=== PATIENT | female | born 1950 | race Caucasian/White ===

== ENCOUNTER 2016-10-22 09:50 | Inpatient (IN) | payer OTHER ==
--- NOTE | 2016-10-22 10:07 | EDPHY ---
H & P Time Seen by Provider: 10/22/16 10:03 HPI/ROS: Chief complaint. Neck swelling, trouble breathing HPI. 66-year-old female presents with left-sided neck swelling for 2 days that is progressively getting worse. She has trouble breathing and swallowing secondary to swelling and pain. No sore throat or cough however. Fever this morning. She does have left lower mandibular dental pain and knows that she has a bad tooth that requires root canal. She did have similar symptoms 1 year ago that was diagnosis a salivary stone. No abdominal pain, vomiting, diarrhea. No rash. No travel. No urinary symptoms. ROS Constitutional. Fever and chills Eyes. no problems with vision ENT. Left-sided neck swelling and left mandibular pain. Increased pain with swallowing Cardiovascular. no chest pain Respiratory. Trouble breathing but no cough Abdominal. no abdominal pain, no nausea/vomiting, no diarrhea . no problems urinating MS. no calf pain/swelling, no neck/back pain, no joint pain Skin. no rash Lymph. no swollen glands Neuro. no headache, no dizziness, no difficulty walking or with speech Past Medical/Surgical History: Past medical history significant for hypothyroid, GERD Social History: , nonsmoker, no alcohol Smoking Status: Never smoked Physical Exam: General Appearance: Alert well-developed female moderate distress. Vital signs show initial temp 39.1degrees with heart rate 114. O2 saturation on room air 88%. Eyes: Pupils equal and round no pallor or injection. ENT, pharynx without injection. Mucous membranes are moist. Tenderness to percussion of the left 2nd molar on the bottom left. Significant swelling that is tender to the left side of her neck below the mandible. Respiratory: There are no retractions, lungs are clear to auscultation. Cardiovascular: Regular rate and rhythm. Gastrointestinal: Abdomen is soft and nontender, no masses, bowel sounds normal. Neurological: Awake and alert, sensory and motor exams grossly normal. Skin: Warm and dry, no rashes. Musculoskeletal: Neck is supple nontender. Extremities symmetrical, full range of motion. Psychiatric: Patient is oriented X 3, there is no agitation. Constitutional: Initial Vital Signs Temperature (C) 39.1 C H 10/22/16 10:02 Heart Rate 114 H 10/22/16 10:02 Respiratory Rate 18 10/22/16 10:02 Blood Pressure 143/92 H 10/22/16 10:02 O2 Sat (%) 88 L 10/22/16 10:02 O2 Delivery Mode Room Air O2 (L/minute) 2 Allergies/Adverse Reactions: No Known Allergies Allergy (Unverified 11/18/15 16:07) Home Medications: Medication Instructions Recorded Krill Oil 11/18/15 Levothyroxine 11/18/15 Omeprazole 11/18/15 Vesicare 11/18/15 Vicodin 11/18/15 Medical Decision Making - Diagnostics Imaging Results: Imaging Impressions Face CT 10/22/16 10:33 Impression: Suspect left tonsillitis without abscess formation. Please see above. 2. CT Neck With Contrast History: Swelling, difficulty breathing and talking Technique: 128 slice ultrathin single breath-hold helical CT through the neck from the skull base through the thoracic inlet after 90 mL Isovue 300 nonionic contrast were injected without complication. Sagittal and coronal reconstructions are reviewed. Dose reduction techniques were utilized. Findings: The larynx and subglottic airway are symmetric and normal. The thyroid gland is unremarkable. Of there is no cervical adenopathy or edema extending into the upper mediastinum. The lung apices are normally aerated. There is multilevel degenerative disk disease. Impression: The left oral pharyngeal edema does not extend into the larynx or subglottic airway. Message was left for Dr. David Watson at 12:03 pm. General information for patients regarding this examination can be found at [email or web address]. If you have questions or comments about this report, please contact me at (hospital) or [phone] (cell). Neck CT 10/22/16 10:33 Impression: Suspect left tonsillitis without abscess formation. Please see above. 2. CT Neck With Contrast History: Swelling, difficulty breathing and talking Technique: 128 slice ultrathin single breath-hold helical CT through the neck from the skull base through the thoracic inlet after 90 mL Isovue 300 nonionic contrast were injected without complication. Sagittal and coronal reconstructions are reviewed. Dose reduction techniques were utilized. Findings: The larynx and subglottic airway are symmetric and normal. The thyroid gland is unremarkable. Of there is no cervical adenopathy or edema extending into the upper mediastinum. The lung apices are normally aerated. There is multilevel degenerative disk disease. Impression: The left oral pharyngeal edema does not extend into the larynx or subglottic airway. Message was left for Dr. David Watson at 12:03 pm. General information for patients regarding this examination can be found at [email or web address]. If you have questions or comments about this report, please contact me at [phone] (hospital) or [phone] (cell). Procedures: IV normal saline. Sepsis evaluation. Morphine for pain. Zofran for nausea Tylenol for fever Decadron and clindamycin IV ED Course/Re-evaluation: Re-evaluation at 12:15 p.m.. Patient is stable. She is improved after pain medication. I looked in the back of her throat again and I do not see pharyngeal edema or evidence for peritonsillar abscess. Patient and I discussed treatment plan including recommendation for hospitalization. She expresses understanding and agreement. She would like to be admitted to a [facility]. We have a phone call in the hospitalist A [facility] does not have either ENT or oral surgery systems protection technician this weekend. Family is in agreement to go to [facility] I consulted discussed case with Dr. Resendez, hospitalist, who agrees to the admission I recommended transport by ambulance however the family is quite insistent that they would like to go by private vehicle with her driving. We discussed risks and benefits of this. They expressed understanding and agreement Differential Diagnosis: This appears to be cellulitis secondary to dental caries. She has a known bad tooth that is needing root canal. This tooth is tender to percussion with tongue blade. Her pharynx appears normal without evidence of peritonsillar abscess. No evidence for abscess at this point. I also considered peritonsillar abscess and acute pharyngitis. I considered sepsis as well - Data Points Laboratory Results: Laboratory Results 10/22/16 10:10 10/22/16 10:10 10/22/16 10/22/16 10/22/16 10:10 10:10 10:10 WBC 17.86 10^3/uL H 10^3/uL (3.80-9.50) RBC 4.51 10^6/uL 10^6/uL (4.18-5.33) Hgb 13.5 g/dL g/dL (12.6-16.3) Hct 40.7 % % (38.0-47.0) MCV 90.2 fL fL (81.5-99.8) MCH 29.9 pg pg (27.9-34.1) MCHC 33.2 g/dL g/dL (32.4-36.7) RDW 13.5 % % (11.5-15.2) Plt Count 178 10^3/uL 10^3/uL (150-400) MPV 12.7 fL H fL (8.7-11.7) Neut % (Auto) 87.5 % H % (39.3-74.2) Lymph % (Auto) 4.8 % L % (15.0-45.0) Bracken % (Auto) 6.7 % % (4.5-13.0) Eos % (Auto) 0.2 % L % (0.6-7.6) Baso % (Auto) 0.2 % L % (0.3-1.7) Nucleat RBC Rel Count 0.0 % % (0.0-0.2) Absolute Neuts (auto) 15.64 10^3/uL H 10^3/uL (1.70-6.50) Absolute Lymphs (auto) 0.86 10^3/uL L 10^3/uL (1.00-3.00) Absolute Monos (auto) 1.19 10^3/uL H 10^3/uL (0.30-0.80) Absolute Eos (auto) 0.03 10^3/uL 10^3/uL (0.03-0.40) Absolute Basos (auto) 0.03 10^3/uL 10^3/uL (0.02-0.10) Absolute Nucleated RBC 0.00 10^3/uL 10^3/uL (0-0.01) Immature Gran % 0.6 % % (0.0-1.1) Immature Gran # 0.11 10^3/uL H 10^3/uL (0.00-0.10) PT 13.6 SEC SEC (12.0-15.0) INR 1.07 (0.83-1.16) APTT 31.1 SEC SEC (23.0-38.0) VBG Lactic Acid Sodium 139 mEq/L mEq/L (134-144) Potassium 4.2 mEq/L mEq/L (3.5-5.2) Chloride 107 mEq/L mEq/L (97-110) Carbon Dioxide 21 mEq/l L mEq/l (22-31) Anion Gap 11 mEq/L mEq/L (8-16) BUN 14 mg/dL mg/dL (7-23) Creatinine 0.8 mg/dL mg/dL (0.6-1.0) Estimated GFR > 60 Glucose 114 mg/dL H mg/dL (70-100) Calcium 8.9 mg/dL mg/dL (8.5-10.4) Total Bilirubin 0.8 mg/dL mg/dL (0.1-1.4) 10/22/16 10:10 WBC RBC Hgb Hct MCV MCH MCHC RDW Plt Count MPV Neut % (Auto) Lymph % (Auto) Bracken % (Auto) Eos % (Auto) Baso % (Auto) Nucleat RBC Rel Count Absolute Neuts (auto) Absolute Lymphs (auto) Absolute Monos (auto) Absolute Eos (auto) Absolute Basos (auto) Absolute Nucleated RBC Immature Gran % Immature Gran # PT INR APTT VBG Lactic Acid 1.0 mmol/L mmol/L (0.7-2.1) Sodium Potassium Chloride Carbon Dioxide Anion Gap BUN Creatinine Estimated GFR Glucose Calcium Total Bilirubin Medications Given: Discontinued Medications Acetaminophen (Tylenol) 1,000 mg PO EDNOW ONE Stop: 10/22/16 10:25 Last Admin: 10/22/16 11:20 Dose: Not Given Acetaminophen (Tylenol Rectal) 650 mg [place] EDNOW ONE Stop: 10/22/16 11:18 Last Admin: 10/22/16 12:01 Dose: Not Given Dexamethasone (Decadron Injection) 10 mg IVP EDNOW ONE Stop: 10/22/16 12:19 Last Admin: 10/22/16 12:41 Dose: 10 mg Sodium Chloride (Ns) 1,000 mls @ 0 mls/hr IV ONCE ONE PRN Reason: Wide Open Stop: 10/22/16 10:26 Last Admin: 10/22/16 10:15 Dose: 1,000 mls Clindamycin Phosphate/Dextrose (Cleocin 600 Mg (Premix)) 50 mls @ 100 mls/hr IV EDNOW ONE PRN Reason: Protocol Stop: 10/22/16 12:47 Last Admin: 10/22/16 12:41 Dose: 50 mls Sodium Chloride (Ns) 1,000 mls @ 0 mls/hr IV EDNOW ONE; Wide Open PRN Reason: Protocol Stop: 10/22/16 12:20 Last Admin: 10/22/16 12:41 Dose: 1,000 mls Morphine Sulfate (Morphine) 6 mg IVP EDNOW ONE Stop: 10/22/16 10:33 Last Admin: 10/22/16 10:41 Dose: 6 mg Ondansetron HCl (Zofran) 4 mg IVP EDNOW ONE Stop: 10/22/16 10:33 Last Admin: 10/22/16 10:41 Dose: 4 mg Departure [facility] Clinical Impression: Left facial cellulitis Condition: Fair
[2016-10-22 10:20] LABS: % IMMATURE GRANULYOCYTES 0.6 % (0.0-1.1); ABSOLUTE IMMATURE GRANULOCYTES 0.11 10^3/uL (0.00-0.10); ADD DIFF? NO; ADD MORPH? NO; ADD SCAN? NO; ATYPICAL LYMPHOCYTE FLAG 0 (0-99); FRAGMENT RBC FLAG 0 (0-99); HEMATOCRIT 40.7 % (38.0-47.0); HEMOGLOBIN 13.5 g/dL (12.6-16.3); LEFT SHIFT FLG 10 (0-99); LIPEMIA HEMOLYSIS FLAG 80 (0-99); MEAN CELL HEMOGLOBIN 29.9 pg (27.9-34.1); MEAN CELL HEMOGLOBIN CONCENTR. 33.2 g/dL (32.4-36.7); MEAN CELL VOLUME 90.2 fL (81.5-99.8); MEAN PLATELET VOLUME 12.7 fL (8.7-11.7); PLATELET CLUMPS FLAG 0 (0-99); PLATELET COUNT 178 10^3/uL (150-400); RED BLOOD CELL COUNT 4.51 10^6/uL (4.18-5.33); RED CELL DISTRIBUTION WIDTH 13.5 % (11.5-15.2)
[2016-10-22] MEDS ORDERED: NS 1,000 ML IV ONE ×2 (10:25→12:19)
[2016-10-22 10:31] LABS: INR 1.07 (0.83-1.16); PROTIME(PATIENT) 13.6 SEC (12.0-15.0)
[2016-10-22 10:32] LABS: ANION GAP 11 mEq/L (8-16); APTT 31.1 SEC (23.0-38.0); BILIRUBIN,TOTAL 0.8 mg/dL (0.1-1.4); CALCIUM 8.9 mg/dL (8.5-10.4); CARBON DIOXIDE 21 mEq/l (22-31); CHLORIDE 107 mEq/L (97-110); CREATININE 0.8 mg/dL (0.6-1.0); GLOMERULAR FILTRATION RATE > 60; GLUCOSE 114 mg/dL (70-100); POTASSIUM 4.2 mEq/L (3.5-5.2); SODIUM 139 mEq/L (134-144)
[2016-10-22] MEDS ORDERED: ONDANSETRON 4 MG/2 ML VIAL IVP ONE (10:32)
[2016-10-22] MEDS: ACETAMINOPHEN 500 MG TAB PO ONE ×3 (10:33→11:20)
[2016-10-22] MEDS ORDERED: IOPAMIDOL (ISOVUE-300) 100 ML BTL ONE (11:09)
[2016-10-22] MEDS ORDERED: ACETAMINOPHEN 650 MG SUPP PR ONE (11:17)
[2016-10-22] MEDS ORDERED: ACETAMINOPHEN 325 MG SUPP PR ONE (11:26)
[2016-10-22] MEDS ORDERED: DEXAMETHASONE 10 MG/ML VIAL IVP ONE (12:18)
[2016-10-22] MEDS ORDERED: CLINDAMYCIN 600 MG/DEXTROSE 50 ML IV ONE (12:18)
[2016-10-22] MEDS ORDERED: ONDANSETRON DISINTEGRATING 4 MG TAB PO PRN (15:06)
[2016-10-22] MEDS ORDERED: ACETAMINOPHEN 325 MG TAB PO PRN (15:06)
[2016-10-22] MEDS ORDERED: ONDANSETRON 4 MG/2 ML VIAL IVP PRN (15:06)
--- NOTE | 2016-10-22 15:50 | GHP ---
[f rep st] HISTORY AND PHYSICAL DATE OF ADMISSION: 10/22/2016 CHIEF COMPLAINT: Left facial swelling. HISTORY OF PRESENT ILLNESS: A 66-year-old female, who knows she needs a left root canal. She state s over the last 2 days she has had increasing swelling over her left face. She says she has had fev er and chills. She had difficulty breathing earlier today, but received antibiotics and Decadron in the emergency department is now not complaining of this. REVIEW OF SYSTEMS: A 10-point review of systems was obtained and was negative. PAST MEDICAL HISTORY: 1. Overactive bladder. 2. GERD. 3. Hypothyroidism. MEDICATIONS: Reviewed. SOCIAL HISTORY: No smoking or alcohol. FAMILY HISTORY: Reviewed, noncontributory. PHYSICAL EXAMINATION: VITAL SIGNS: Afebrile. Blood pressure is 115/60, heart rate 81, oxygen satu ration 95% on room air. GENERAL: The patient is well developed, no apparent distress. HEENT: Non icteric sclerae. Left perimandibular swelling and tenderness. No stridor. NECK: Supple. No thyr omegaly. LUNGS: Good effort. Clear to auscultation bilaterally. CARDIOVASCULAR: Regular rate an d rhythm. No murmurs, gallops. ABDOMEN: Positive bowel sounds. Soft, nontender, nondistended. N o hepatomegaly. EXTREMITIES: No clubbing, cyanosis, or edema. SKIN: Without rash. Warm, dry, an d intact. NEUROLOGIC: Alert and oriented x3. Moving all 4 extremities equally. PSYCH: Normal mo od and affect. LABORATORY DATA: White count is elevated at 17. Lactate is normal. Creatinine is normal. CT scan of the neck is being read as left tonsillitis without abscess. ASSESSMENT: This is a 66-year-old female presenting with facial swelling, most likely odontogenic. PLAN: 1. Facial swelling. I discussed the case with the ENT cushion maker. They reviewed the CT scan. They t hink this is coming from the tooth and that there might be an abscess forming around the tooth. Rep ortedly, there is no oral surgeon cushion maker today or through the weekend it seems. 2. Plan B: For tonight, they will treat with IV antibiotics and Decadron. We will have to see how she is doing tomorrow, and if she can be transitioned to oral antibiotics, and to follow up with Or al Surgery, or if we need to find an oral surgeon or transfer her to a hospital that has oral surger y. /[id number]/MODL
[2016-10-22] MEDS: DEXAMETHASONE 4 MG TAB PO SCH ×2 (16:15→21:48)
[2016-10-22] MEDS: AMPICILLIN/SULBACTAM 3 GM in NS 100 ML IV SCH (17:14)
[2016-10-23] MEDS: AMPICILLIN/SULBACTAM 3 GM in NS 100 ML IV SCH ×4 (00:32→18:17)
[2016-10-23 04:41] LABS: % IMMATURE GRANULYOCYTES 0.8 % (0.0-1.1); ABSOLUTE IMMATURE GRANULOCYTES 0.15 10^3/uL (0.00-0.10); ADD DIFF? NO; ADD MORPH? NO; ADD SCAN? NO; ATYPICAL LYMPHOCYTE FLAG 0 (0-99); FRAGMENT RBC FLAG 0 (0-99); HEMATOCRIT 36.8 % (38.0-47.0); HEMOGLOBIN 12.1 g/dL (12.6-16.3); LEFT SHIFT FLG 30 (0-99); LIPEMIA HEMOLYSIS FLAG 80 (0-99); MEAN CELL HEMOGLOBIN 30.7 pg (27.9-34.1); MEAN CELL HEMOGLOBIN CONCENTR. 32.9 g/dL (32.4-36.7); MEAN CELL VOLUME 93.4 fL (81.5-99.8); MEAN PLATELET VOLUME 12.9 fL (8.7-11.7); PLATELET CLUMPS FLAG 20 (0-99); PLATELET COUNT 151 10^3/uL (150-400); RED BLOOD CELL COUNT 3.94 10^6/uL (4.18-5.33); RED CELL DISTRIBUTION WIDTH 13.7 % (11.5-15.2)
[2016-10-23 04:58] LABS: ANION GAP 10 mEq/L (8-16); CALCIUM 9.1 mg/dL (8.5-10.4); CARBON DIOXIDE 22 mEq/l (22-31); CHLORIDE 109 mEq/L (97-110); CREATININE 0.9 mg/dL (0.6-1.0); GLOMERULAR FILTRATION RATE > 60; GLUCOSE 193 mg/dL (70-100); POTASSIUM 4.3 mEq/L (3.5-5.2); SODIUM 141 mEq/L (134-144)
[2016-10-23] MEDS: DEXAMETHASONE 4 MG TAB PO SCH ×3 (09:20→22:30)
--- NOTE | 2016-10-23 10:39 | ASMTCMCOM ---
CM Note CM Note Notes: Spoke w/RN, pt here with tooth infection, unclear if will have oral surgery and/or need for IV abx. Pt lives w/ and is otherwise independent, JOLLY w/f. Date Signed: 10/23/2016 10:38 AM Electronically Signed By:Nicolle Sheehan
[2016-10-23] MEDS ORDERED: [UNRECOGNIZED DRUG - REMARK] PO SCH (11:15)
[2016-10-23] MEDS ORDERED: NON-FORMULARY NEW DRUG (Omeprazole Magnesium [Prilosec Otc] 20 MG) PO SCH (11:15)
[2016-10-23] MEDS ORDERED: TOLTERODINE TARTRATE 4 MG PO SCH (11:15)
[2016-10-23] MEDS ORDERED: Herbals/Supplements -Info Only PO SCH (11:30)
[2016-10-23] MEDS: LEVOTHYROXINE 75 MCG TAB PO SCH (12:03)
[2016-10-23] MEDS: TOLTERODINE TARTRATE 2 MG EXT REL CAP PO SCH (12:04)
[2016-10-23] MEDS: PANTOPRAZOLE SODIUM 40 MG TAB PO SCH (12:04)
[2016-10-23] MEDS: CETIRIZINE 10 MG TAB PO SCH (12:04)
[2016-10-23] MEDS ORDERED: D50W 25 GM/50 ML SYR IVP PRN (13:48)
--- NOTE | 2016-10-23 13:51 | HOSPPROG ---
Hospitalist Progress Note Assessment/Plan: Assessment: 66-year-old female presents with peritonsillar/peridontal infection Plan: 1. Peritonsillar/peridontal infection. Acute, new problem, further w/u indicated. Present along the left mandibular side with face and neck CT demonstrating tonsillar infection but no overt abscess, no overt extension into the neck, significant peridontal inflammation warranting removal -BCx pending -d/w Amrit De Leon, we agreed to get OMFS consult in AM for surgical removal and will repeat neck CT if pain increasing of if requested by OMFS prior to surgery (irrigation may alleviate any fluid tracking into left side of neck) -monitor CBC -unasyn, dex -surg cx will be sent 2. Sepsis. Evidenced by ICDS-2 criteria, autonomic dysregulation in setting of infxn w/ leukocytosis, tachycardia, fever, clear source of infxn -ongoing IVF and Abx Diet. As scott PPx. SCDs, hold pharm given surg tomorrow Code. Full Dispo. ADD uncertain, requiring surgery tomorrow Subjective: ongoing left neck pain, pain w/ swallowing Objective: Vital Signs Temp Pulse Resp BP Pulse Ox 36.8 C 69 18 113/53 L 94 10/23/16 11:30 10/23/16 11:30 10/23/16 11:30 10/23/16 11:30 10/23/16 11:30 Laboratory Results 10/23/16 04:10 10/23/16 04:10 10/22/16 10/23/16 10/24/16 05:59 05:59 05:59 Intake Total 2049 Balance 2049 PT 13.6 SEC (12.0-15.0) 10/22/16 10:10 INR 1.07 (0.83-1.16) 10/22/16 10:10 - Physical Exam Constitutional: no apparent distress, appears nourished, uncomfortable, No not in pain Ears, Nose, Mouth, Throat: other (left molar broken down w/o surrounding erythema, unable visualize tonsils, no exudate clearly seen, normal tongue) Cardiovascular: regular rate and rhythym, no murmur, rub, or gallop, No edema Respiratory: no respiratory distress, no rales or rhonchi, clear to auscultation , other (no upper airway stridor) Gastrointestinal: normoactive bowel sounds, soft, non-tender abdomen, no palpable masses Skin: other (mild edema and moderate tenderness left neck w/o erythema/ ecchymoses/induration) Neurologic: AAOx3, sensation intact bilaterally Psychiatric: interacting appropriately, not anxious, not encephalopathic, thought process linear ICD10 Worksheet Patient Problems: Problems Problem Status Onset Peritonsillitis Acute
[2016-10-23] MEDS ORDERED: NS 1,000 ML IV SCH (14:15)
[2016-10-23] MEDS: oxyCODONE IR 5 MG TAB PO PRN ×2 (14:56→19:45)
[2016-10-23] MEDS: INSULIN REGULAR HUMAN 100 UNIT/ML SC SCH ×2 (18:17→22:30)
[2016-10-24] MEDS: AMPICILLIN/SULBACTAM 3 GM in NS 100 ML IV SCH ×5 (00:38→23:27)
[2016-10-24 05:15] LABS: % IMMATURE GRANULYOCYTES 1.2 % (0.0-1.1); ABSOLUTE IMMATURE GRANULOCYTES 0.23 10^3/uL (0.00-0.10); ADD DIFF? NO; ADD MORPH? NO; ADD SCAN? NO; ATYPICAL LYMPHOCYTE FLAG 0 (0-99); FRAGMENT RBC FLAG 0 (0-99); HEMATOCRIT 35.7 % (38.0-47.0); HEMOGLOBIN 11.6 g/dL (12.6-16.3); LEFT SHIFT FLG 10 (0-99); LIPEMIA HEMOLYSIS FLAG 80 (0-99); MEAN CELL HEMOGLOBIN 30.3 pg (27.9-34.1); MEAN CELL HEMOGLOBIN CONCENTR. 32.5 g/dL (32.4-36.7); MEAN CELL VOLUME 93.2 fL (81.5-99.8); MEAN PLATELET VOLUME 13.6 fL (8.7-11.7); PLATELET CLUMPS FLAG 10 (0-99); PLATELET COUNT 168 10^3/uL (150-400); RED BLOOD CELL COUNT 3.83 10^6/uL (4.18-5.33); RED CELL DISTRIBUTION WIDTH 14.1 % (11.5-15.2)
[2016-10-24 05:39] LABS: ANION GAP 6 mEq/L (8-16); CARBON DIOXIDE 24 mEq/l (22-31); CHLORIDE 108 mEq/L (97-110); CREATININE 0.8 mg/dL (0.6-1.0); GLOMERULAR FILTRATION RATE > 60; GLUCOSE 147 mg/dL (70-100); POTASSIUM 4.4 mEq/L (3.5-5.2); SODIUM 138 mEq/L (134-144)
[2016-10-24] MEDS: LEVOTHYROXINE 75 MCG TAB PO SCH (06:28)
[2016-10-24] MEDS: PANTOPRAZOLE SODIUM 40 MG TAB PO SCH (07:23)
[2016-10-24] MEDS: INSULIN REGULAR HUMAN 100 UNIT/ML SC SCH ×4 (07:37→21:29)
[2016-10-24] MEDS: TOLTERODINE TARTRATE 2 MG EXT REL CAP PO SCH (08:32)
[2016-10-24] MEDS: CETIRIZINE 10 MG TAB PO SCH (08:33)
[2016-10-24] MEDS: DEXAMETHASONE 4 MG TAB PO SCH ×3 (08:33→21:29)
--- NOTE | 2016-10-24 11:53 | ASMTCMCOM ---
CM Note CM Note Notes: Spoke with Dr. Pillai regarding patient's peridontal infection and the need for further work-up by oral surgery. Confirmed with Financial Services that patient's insurance would not cover a visit to another provider while in house. Dr. Pillai to discuss further treatment options with oral surgery. Case Managment available for any further needs. Date Signed: 10/24/2016 11:51 AM Electronically Signed By:Monika Causey
[2016-10-24] MEDS ORDERED: LIDOCAINE 2% VISCOUS 15 ML UDCUP PO PRN (13:02)
--- NOTE | 2016-10-24 16:27 | HOSPPROG ---
Hospitalist Progress Note Assessment/Plan: Assessment: 66-year-old female presents with peritonsillar/peridontal infection Plan: 1. Peritonsillar/peridontal infection. Acute, present along the left mandibular side with face and neck CT demonstrating tonsillar infection with small abscess , less pain and swelling today but remains clinically unresolved -add viscous lidocaine, cont PRN pain Rx -d/w Dr. Kvng Cabrera ([phone]), he is unable to schedule OR at [facility] this week for removal, Dr. Elizabeth is out of town -d/w ENT (Amrit De Leon and Dr. Milligan), they feel like tooth extraction would be higher yield then pharynx exploration b/c source is the tooth and a neck exploration would not cure that -consequently, the plan that Dr. Cabrera and I agree on is to continue the patient on IV Abx/steroids at this time, and, if pain/swelling improving tomorrow, then discharge 10/25 w/ PO Abx and follow-up at Dr. Cabrera's office on 10/26 8 a.m. for tooth extraction, and further outpatient mgmt under his direction -please text/call Dr. Cabrera tomorrow AM to confirm if patient's condition amenable to this plan -monitor CBC -unasyn, dex 2. Sepsis. Evidenced by ICDS-2 criteria, autonomic dysregulation in setting of infxn w/ leukocytosis, tachycardia, fever, clear source of infxn -ongoing Abx, IVF discontinued as she is taking PO Diet. As scott PPx. Lovenox 40 Code. Full Dispo. ADD 10/25, pending improvement of above Subjective: Ongoing, but less pain in the left neck, counseled patient extensively regarding OR availability and plan for outpatient surgery Objective: Vital Signs Temp Pulse Resp BP Pulse Ox 37.1 C 63 16 146/86 H 92 10/24/16 15:14 10/24/16 15:14 10/24/16 15:14 10/24/16 15:14 10/24/16 15:14 Laboratory Results 10/24/16 04:12 10/24/16 04:12 10/23/16 10/24/16 10/25/16 05:59 05:59 05:59 Intake Total 2049 1890 Output Total 600 Balance 2049 1290 PT 13.6 SEC (12.0-15.0) 10/22/16 10:10 INR 1.07 (0.83-1.16) 10/22/16 10:10 - Time Spent With Patient Time Spent with Patient: greater than 35 minutes Time Spent with Patient: Greater than 35 minutes spent on this patients care, greater than 50% of time spent counseling, educating, and coordinating care regarding the above mentioned plan. - Pending Discharge Pending Discharge Within 24 Hours: Yes Pending Discharge Date: 10/25/16 Pending Discharge Time: 11:00 - Physical Exam Constitutional: no apparent distress, uncomfortable Ears, Nose, Mouth, Throat: other (Damaged left mandibular molars without direct visualization of the tonsils, patient unable to open up her mouth fully secondary to pain) Cardiovascular: regular rate and rhythym, no murmur, rub, or gallop Respiratory: no respiratory distress, no rales or rhonchi, clear to auscultation , other (No stridor in the neck) Gastrointestinal: normoactive bowel sounds, soft, non-tender abdomen, no palpable masses Skin: other (Erythema resolved on the left neck) Musculoskeletal: other (Full range of motion of the neck with minimal pain, mild tenderness over the left anterior neck, mild tenderness over the left mandible) Neurologic: AAOx3 Psychiatric: interacting appropriately, not anxious, not encephalopathic, thought process linear ICD10 Worksheet Patient Problems: Problems Problem Status Onset Peritonsillitis Acute
[2016-10-25 05:10] LABS: ANION GAP 11 mEq/L (8-16); CALCIUM 8.8 mg/dL (8.5-10.4); CARBON DIOXIDE 22 mEq/l (22-31); CHLORIDE 108 mEq/L (97-110); CREATININE 0.9 mg/dL (0.6-1.0); GLOMERULAR FILTRATION RATE > 60; GLUCOSE 134 mg/dL (70-100); POTASSIUM 4.4 mEq/L (3.5-5.2); SODIUM 141 mEq/L (134-144)
[2016-10-25] MEDS: LEVOTHYROXINE 75 MCG TAB PO SCH (05:12)
[2016-10-25] MEDS: AMPICILLIN/SULBACTAM 3 GM in NS 100 ML IV SCH ×3 (05:12→17:57)
[2016-10-25 06:01] LABS: ADD DIFF? YES; ADD MORPH? NO; ADD SCAN? NO; ATYPICAL LYMPHOCYTE FLAG 0 (0-99); FRAGMENT RBC FLAG 10 (0-99); HEMATOCRIT 36.5 % (38.0-47.0); HEMOGLOBIN 11.9 g/dL (12.6-16.3); LEFT SHIFT FLG 20 (0-99); LIPEMIA HEMOLYSIS FLAG 80 (0-99); MEAN CELL HEMOGLOBIN CONCENTR. 32.6 g/dL (32.4-36.7); MEAN CELL VOLUME 91.9 fL (81.5-99.8); MEAN PLATELET VOLUME 13.4 fL (8.7-11.7); PLATELET CLUMPS FLAG 30 (0-99); PLATELET COUNT 194 10^3/uL (150-400); RED BLOOD CELL COUNT 3.97 10^6/uL (4.18-5.33); RED CELL DISTRIBUTION WIDTH 13.9 % (11.5-15.2)
[2016-10-25 06:52] LABS: PLATELET ESTIMATE ADEQUATE (ADEQ)
[2016-10-25] MEDS: DEXAMETHASONE 4 MG TAB PO SCH ×2 (08:23→16:00)
[2016-10-25] MEDS: TOLTERODINE TARTRATE 2 MG EXT REL CAP PO SCH (08:23)
[2016-10-25] MEDS: CETIRIZINE 10 MG TAB PO SCH (08:23)
[2016-10-25] MEDS: PANTOPRAZOLE SODIUM 40 MG TAB PO SCH (08:23)
--- NOTE | 2016-10-25 08:33 | HOSPPROG ---
Hospitalist Progress Note Assessment/Plan: Patient 66-year-old female presents with peritonsillar/peridontal infection *Peritonsillar / peridontal infection CT scan demonstrates a tonsillar infection small abscess needs a tooth extraction the previous provider discussed with Dr. Cabrera, plan is for few tooth extraction on 10/26 8:00 a.m. his phone number is [phone] the patient is on Unasyn and Decadron * sepsis Resolving * leukocytosis Suspect her white blood cell count is remained elevated due to steroid use plan. * Plan. I spoke with Dr. Cabrera. He would like her to stay in the hospital through the night for continued antibiotics and be discharged tomorrow morning at 7:00 a.m.. She will need to go to his office for for tooth extraction. I will place prescriptions for her to get Augmentin and wean down off the Decadron. I discussed her care with Dr. Pillai who is working [employer] and he will check in on her in the morning. Subjective: Nadine is still complaining of some swelling in the left neck area Objective: Vital Signs Temp Pulse Resp BP Pulse Ox 36.9 C 49 L 16 152/76 H 92 10/25/16 07:09 10/25/16 07:09 10/25/16 07:09 10/25/16 07:09 10/25/16 07:09 Laboratory Results 10/25/16 04:15 10/25/16 04:15 10/24/16 10/25/16 10/26/16 05:59 05:59 05:59 Intake Total 1890 Output Total 600 Balance 1290 PT 13.6 SEC (12.0-15.0) 10/22/16 10:10 INR 1.07 (0.83-1.16) 10/22/16 10:10 - Physical Exam Constitutional: no apparent distress, appears nourished, No not in pain ( minimal pain) Eyes: PERRL Ears, Nose, Mouth, Throat: hearing normal, no oral mucosal ulcers, other ( evaluated her tonsils she has minimal redness on the left tonsil she has some lymph adenopathy in the left neck area) Cardiovascular: regular rate and rhythym Respiratory: no respiratory distress Gastrointestinal: normoactive bowel sounds Skin: warm, no fluctuance Neurologic: AAOx3 Psychiatric: interacting appropriately, not anxious Lymph, Heme, Immunologic: lymphadenopathy ICD10 Worksheet Patient Problems: Problems Problem Status Onset Peritonsillitis Acute
[2016-10-25] MEDS: INSULIN REGULAR HUMAN 100 UNIT/ML SC SCH ×4 (08:35→22:29)
[2016-10-25 14:56] VITALS: O2SAT 95
[2016-10-25] MEDS ORDERED: DEXAMETHASONE 4 MG TAB PO SCH (21:00)
[2016-10-26] MEDS: AMPICILLIN/SULBACTAM 3 GM in NS 100 ML IV SCH ×2 (00:07→05:23)
[2016-10-26 00:12] VITALS: BP 156/66; PULSE 44; RESP 18; TEMP 98.3
[2016-10-26 04:54] LABS: ABSOLUTE NRBC COUNT 0.02 10^3/uL (0-0.01); ADD DIFF? YES; ADD MORPH? NO; ADD SCAN? NO; ATYPICAL LYMPHOCYTE FLAG 10 (0-99); FRAGMENT RBC FLAG 0 (0-99); HEMATOCRIT 36.5 % (38.0-47.0); HEMOGLOBIN 12.2 g/dL (12.6-16.3); LEFT SHIFT FLG 40 (0-99); LIPEMIA HEMOLYSIS FLAG 80 (0-99); MEAN CELL HEMOGLOBIN 30.5 pg (27.9-34.1); MEAN CELL HEMOGLOBIN CONCENTR. 33.4 g/dL (32.4-36.7); MEAN CELL VOLUME 91.3 fL (81.5-99.8); NRBC-AUTO% 0.2 % (0.0-0.2); PLATELET CLUMPS FLAG 0 (0-99); PLATELET COUNT 173 10^3/uL (150-400); RED CELL DISTRIBUTION WIDTH 13.5 % (11.5-15.2)
[2016-10-26 05:01] LABS: ANION GAP 8 mEq/L (8-16); CALCIUM 8.4 mg/dL (8.5-10.4); CARBON DIOXIDE 23 mEq/l (22-31); CHLORIDE 109 mEq/L (97-110); CREATININE 0.8 mg/dL (0.6-1.0); GLOMERULAR FILTRATION RATE > 60; GLUCOSE 163 mg/dL (70-100); POTASSIUM 4.3 mEq/L (3.5-5.2); SODIUM 140 mEq/L (134-144)
[2016-10-26] MEDS: LEVOTHYROXINE 75 MCG TAB PO SCH (05:31)
[2016-10-26 05:36] LABS: PLATELET ESTIMATE ADEQUATE (ADEQ)
--- NOTE | 2016-10-26 06:16 | PDDCSUM ---
Discharge Summary Discharge Summary: DISCHARGE SUMMARY FOLLOW-UP ITEMS: Tooth extraction DATE OF ADMISSION: 10/22/2016 DATE OF DISCHARGE: 10/26/2016 DISCHARGE DIAGNOSES: 1. Sepsis 2. Peritonsillar and periodontal infection with abscess CONSULTATIONS: Dr. Kvng Cabrera, Dr. Michael osman PROCEDURES / IMAGING: Plan tooth extraction at 8:00 a.m. on 10/26 CHIEF COMPLAINT: Acute neck pain SUBJECTIVE: Patient is feeling well at time of discharge, she has mild pain under her left mandible PHYSICAL EXAM ON DISCHARGE: Systolic blood pressure is 150, heart rate 50, afebrile, satting well on room air, alert awake oriented x3, tenderness under the left mandible without significant swelling, in no overt tenderness on the left anterior neck, patient able to open up mouth approximately 75% of the way, left mandibular molar demonstrates tooth decay LABS ON DISCHARGE: White blood cell count 73698, hemoglobin 12.2, glucose 160, creatinine 0.8 HOSPITAL COURSE BY PROBLEM: 1. Sepsis. Evidenced by ICDS-2 criteria with autonomic dysregulation in the setting of infection, with signs including tachycardia, tachypnea, leukocytosis , fever, clear source of infection notably periodontal. Patient received empiric IV fluids and IV antibiotics. All clinical signs were returning to normal. 2. Periodontal and peritonsillar infection with abscess. Patient had evidence of infection and abscess on face and neck CT. Most likely source is around the left mandibular molar. The case was discussed with ear nose and throat as well as oral maxillofacial surgery. The initial course was conservative with IV antibiotics and steroids. Patient's pain and swelling improved, she maintained her airway, she did not require intubation. Decision was made to remove the tooth and patient was scheduled for tooth extraction on 10/26/2016 at a.m.. Patient will continue on oral antibiotics including Augmentin, as well as oral steroids including dexamethasone, have her tooth extracted, then twice daily outpatient management of Dr. Kvng Cabrera. DISCHARGE MEDICATIONS: Please see official discharge medication reconciliation sheet in chart , Augmentin, dexamethasone, continue other medications. DISCHARGE INSTRUCTIONS: Please follow up at the oral surgery office for surgery at 8 a.m..
--- NOTE | 2016-10-29 17:05 | ASDISCHSUM ---
Discharge Information Plan Status:Home with No Needs Medically Cleared to Leave:10/26/2016 Discharge Date:10/26/2016 07:06 AM CM D/C Disposition:Home, Routine, Self-Care ADT D/C Disposition:Home, Routine, Self-Care Projected Discharge Date:10/26/2016 11:00 AM Transportation at D/C: Discharge Delay Reason: Follow-Up Date:10/26/2016 11:00 AM Discharge Slot: Final Diagnosis: Placement Information Referral Type:Home Infusion Referral ID:[id number] Provider Name: Address 1: Phone Number: Address 2: Fax Number: City: Selection Factors: State: Patient Contact Information Contact Name:STEWART Relationship: Address:[address] [place] [address] Work Phone: City:[facility] Phone: [facility]/Zip Code:[place] [address] Email: Financial Information Financial Class:Kimmie Wiggins Primary Plan Desc:KIMMIE BORD[facility] Primary Plan Number:[id number] Secondary Plan Desc: Secondary Plan Number: Assessment Information [facility] CM Progress Note CM Note CM Note Notes: Spoke w/RN, pt here with tooth infection, unclear if will have oral surgery and/or need for IV abx. Pt lives w/ and is otherwise independent, CM w/f. Date Signed: 10/23/2016 10:38 AM Electronically Signed By:Nicolle Sheehan [facility] CM Progress Note CM Note CM Note Notes: Spoke with Dr. Pillai regarding patient's peridontal infection and the need for further work-up by oral surgery. Confirmed with Financial Services that patient's insurance would not cover a visit to another provider while in house. Dr. Pillai to discuss further treatment options with oral surgery. Case Managment available for any further needs. Date Signed: 10/24/2016 11:51 AM Electronically Signed By:Monika Causey Intervention Information
== END 2016-10-26 07:06 | disposition home or self-care (01) | DRG 872 ==
LOC: CED 09:50 → CEDHOLD 12:26 → F3E 14:08
PROVIDERS: ADMIT Internal Medicine; ATTEND Internal Medicine
DX: A41.9 Sepsis, unspecified organism (principal); K05.319 Chronic periodontitis, localized, unspecified severity; J36 Peritonsillar abscess; E03.9 Hypothyroidism, unspecified; K21.9 Gastro-esophageal reflux disease without esophagitis; N32.81 Overactive bladder
CPT/HCPCS: 70487-PO; 70491-PO; 80048-PO; 82247-PO; 83605-PO; 85025-PO; 85610-PO; 85730-PO; 96365; J0295; J1100; J1815; J2405; Q9967